=== PATIENT | female | born 1990 | race Hispanic/Latino ===

== ENCOUNTER 2018-05-13 11:12 | Emergency (ER) | payer OTHER ==
[2018-05-13 11:44] VITALS: BP 124/72; PULSE 79; RESP 18; TEMP 97.1; O2SAT 99
[2018-05-13] MEDS ORDERED: PROPARACAINE/FLUORESCEIN SOD 100 DROP/5 ML BOTTLE OS STA (11:57)
--- NOTE | 2018-05-13 14:15 | ED PDOC ---
HPI: Eye Injury/Pain Time Seen by Provider: 05/13/18 11:54 Chief Complaint (Nursing): Eye Problem Chief Complaint (Provider): Eye Problem History Per: Patient History/Exam Limitations: no limitations Onset/Duration Of Symptoms: Hrs (xPTA) Additional Complaint(s): Tomasa Hillman is a 28 year old female with no past medical history, who presents to the emergency department after sustaining an eye injury today prior to arrival. Patient states she was doing laundry and clorox bleach splashed in both her eyes but mostly her left eye. She states she is felling burning sensation and blurring vision in her left eye. Patient states she rinsed her eye for 10-15 minutes after incident. She does not wear contacts but does wear glasses to read. Patient denies any other medical complaint. PMD: No provider Past Medical History Reviewed: Historical Data, Nursing Documentation, Vital Signs Vital Signs: Last Vital Signs Temp 97.1 F L 05/13/18 11:41 Pulse 79 05/13/18 11:41 Resp 18 05/13/18 11:41 BP 124/72 05/13/18 11:41 Pulse Ox 99 05/13/18 11:41 - Medical History PMH: Anxiety, Depression - Surgical History Surgical History: No Surg Hx - Family History Family History: States: Unknown Family Hx - Allergies Allergies/Adverse Reactions: Allergies Allergy/AdvReac Type Severity Reaction Status Date / Time macadamia nut oil Allergy ANAPHYLAXIS Verified 05/13/18 11:40 Sulfa (Sulfonamide Allergy RASH Verified 05/13/18 11:40 Antibiotics) Review of Systems ROS Statement: Except As Marked, All Systems Reviewed And Found Negative Eyes: Positive for: Pain, Vision Change Physical Exam - Reviewed Nursing Documentation Reviewed: Yes Vital Signs Reviewed: Yes - Physical Exam Appears: Positive for: Non-toxic, No Acute Distress Head Exam: Positive for: ATRAUMATIC, NORMOCEPHALIC Skin: Positive for: Normal Color, Warm, Dry Eye Exam: Positive for: Other (Right eye: minimal injection and no tearing; Left eye: injected with lacrimation, cornea is clear, pupil is reactive, conjunctiva is hyperemic) Respiratory: Negative for: Respiratory Distress Neurologic/Psych: Positive for: Alert, Oriented (x3) - ECG O2 Sat by Pulse Oximetry: 99 (RA) Pulse Ox Interpretation: Normal - Progress ED Course And Treament: Time: 13:00 Provider immediately irrigated with 750 cc of sterile saline and tear film pH is approximately 8. Thereafter patient felt better and has a visual acuity of 20/25. Provider discussed with glost placer and will see him tomorrow morning at 8am. Medical Decision Making Medical Decision Making: Initial Time: 11:57 Initial Impression: Chemical burn to eye Initial Plan: --Flucaine Eye drops 2 drops OS Scribe Attestation: Documented by Low Greco, acting as a scribe for Olman Marshall III, DO. Provider Scribe Attestation: All medical record entries made by the Scribe were at my direction and p ersonally dictated by me. I have reviewed the chart and agree that the record accurately reflects my personal performance of the history, physical exam, medical decision making, and the department course for this patient. I have also personally directed, reviewed, and agree with the discharge instructions and disposition. Disposition - Clinical Impression Clinical Impression: Chemical burn of eye - Disposition Referrals: Aroldo Garcia MD [Staff Provider] - Disposition Time: 13:25 Condition: STABLE Additional Instructions: See eye doctor for further exam as instructed. Always use eye protection when working with bleach. Instructions: Chemical Eye Injury (DC) Forms: [employer] (Italian), [facility] ED School/Work Excuse
== END 2018-05-13 14:27 | disposition home or self-care (01) ==
LOC: H.ER 11:12
DX: T26.40XA Burn of unspecified eye and adnexa, part unspecified, initial encounter (principal); Z86.59 Personal history of other mental and behavioral disorders